=== PATIENT | male | born 1985 | race Caucasian/White ===

== ENCOUNTER 2024-10-15 14:22 | Emergency (ER) | payer SELFPAY ==
[~2024-10-15] VITALS: Ht 182.9 cm; Wt 154.2 kg
[2024-10-15 15:00] VITALS: PULSE 96; RESP 18; TEMP 98.8
[2024-10-15] MEDS: HYDROCODONE/APAP 7.5MG-325MG 1 EA TAB PO ONE (15:16)
[2024-10-15 17:20] VITALS: BP 116/56; PULSE 85; RESP 16; TEMP 98; O2SAT 98
== END 2024-10-15 16:55 | disposition home or self-care (01) ==
LOC: ER 15:10
DX: S63.681A Other sprain of right thumb, initial encounter (principal); W10.8XXA Fall (on) (from) other stairs and steps, initial encounter; Y93.01 Activity, walking, marching and hiking; Y92.89 Other specified places as the place of occurrence of the external cause; F43.10 Post-traumatic stress disorder, unspecified; F17.210 Nicotine dependence, cigarettes, uncomplicated
CPT/HCPCS: 99283